=== PATIENT | female | born 1980 | race Caucasian/White ===

== ENCOUNTER 2018-08-20 18:28 | Emergency (ER) | payer OTHER ==
[~2018-08-20] VITALS: Ht 175.3 cm; Wt 127.0 kg
[~2018-08-20 18:28] MED LIST: ALDACTONE50 MG PO; EFFEXOR75 MG PO; EPIPEN 2-P0.3 MG/0.3 IM; GLUCOPHAGE1000 MG PO; HYDROCHLOROTH12.5 M1 PO; IBUPROFEN 800800 MG PO; LISINOPRIL10 MG PO; MULTIVITAMINS PO; NORVASC5 MG PO; TRAMADOL 50 MG50 MG PO; XANAX 0.25 MG0.25 MG PO; YASMIN 28 TABL1 EACH PO
[2018-08-20 18:48] LABS: URINE BLOOD 3+ (Negative); URINE CLARITY SL CLOUDY; URINE COLOR YELLOW; URINE GLUCOSE-RANDOM* NEGATIVE (Negative); URINE KETONES TRACE (Negative); URINE NITRITE-REFLEX NEGATIVE (Negative); URINE PROTEIN (DIPSTICK) 1+ (Negative); URINE SPECIFIC GRAVITY >= 1.030 (1.005-1.035)
[2018-08-20 18:51] LABS: ICTOTEST (BILI CONFIRMATORY) Negative (Negative); URINE BILIRUBIN NEGATIVE (Negative); URINE LEUKOCYTES-REFLEX 1+ (Negative)
[2018-08-20 19:08] LABS: CASTS None Seen /LPF (None Seen); CRYSTALS None Seen /LPF (None Seen); SQUAMOUS 0-3 Few /LPF (0-3); URINE RBC >20 Many /HPF (0-2)
[2018-08-20 19:09] LABS: BACTERIA-REFLEX 1-9 Few /HPF (None Seen); URINE WBC-REFLEX 6-15 Few /HPF (0-5); YEAST-REFLEX Present (None Seen)
[2018-08-20] MEDS ORDERED: XANAX 0.5 MG0.5 MG PO (19:13)
[2018-08-20] MEDS ORDERED: APRI1 EACH PO (19:14)
[2018-08-20] MEDS ORDERED: TRAZODONE HCL50 MG PO (19:15)
[2018-08-20] MEDS ORDERED: GABAPENTIN 100100 MG PO (19:15)
[2018-08-20] MEDS ORDERED: CARDIZEM CD240 MG PO (19:16)
[2018-08-20 20:04] LABS: CALCIUM 8.8 mg/dL (8.5-10.1); CREATININE 0.9 mg/dL (0.6-1.0); POTASSIUM 3.5 mmol/L (3.5-5.1)
[2018-08-20 20:08] LABS: ABSOLUTE NEUTROPHILS 13.3 thou/uL (1.4-8.2); BASOPHILS 0.4 % (0.0-2.0); EOSINOPHILS 1.8 % (0.0-3.0); HEMATOCRIT 39.2 % (37.0-47.0); HEMOGLOBIN 13.2 gm/dL (12.0-15.0); LYMPHOCYTES 13.2 % (24.0-44.0); MCH 28.5 pg (26.0-34.0); MCHC 33.8 g/dL (28.0-37.0); MCV 84.4 fL (80.0-100.0); MONOCYTES 3.1 % (1.0-8.0); PLATELET COUNT 375 thou/uL (150-400); POLYS 81.5 % (36.0-66.0); RBC 4.64 mil/uL (4.20-5.00); RDW 13.9 % (10.5-14.5); WBC 16.3 thou/uL (4.0-11.0)
[2018-08-20] MEDS ORDERED: KEFLEX500 M1 PO (21:57)
[2018-08-20] MEDS ORDERED: ULTRAM 50MG TAB50 MG PO (21:57)
[2018-08-20] MEDS ORDERED: ZOFRAN4 MG PO (21:57)
[2018-08-20 22:26] VITALS: BP 146/84
== END 2018-08-20 22:27 | disposition home or self-care (01) ==
LOC: ER 18:28
PROVIDERS: Emergency Medicine
DX: N20.1 Calculus of ureter (principal); N39.0 Urinary tract infection, site not specified; I10 Essential (primary) hypertension; E28.2 Polycystic ovarian syndrome; M41.9 Scoliosis, unspecified; Z88.8 Allergy status to other drugs, medicaments and biological substances; Z91.048 Other nonmedicinal substance allergy status; Z87.442 Personal history of urinary calculi